=== PATIENT | male | born 1965 | race Caucasian/White ===

== ENCOUNTER → 2019-01-31 | Outpatient (REF) | payer OTHER | LOC: M LAB LCGH 16:27 | PROVIDERS: ATTEND Physician Assistant | DX: D23.5 Other benign neoplasm of skin of trunk (principal) ==

== ENCOUNTER → 2021-03-27 | Outpatient (REF) | payer OTHER | LOC: M LAB REF 12:37 | PROVIDERS: ATTEND Ophthalmology | DX: L82.1 Other seborrheic keratosis (principal) ==

== ENCOUNTER → 2023-07-24 | Outpatient (CLI) | payer OTHER | LOC: M SLEEP 20:00 | PROVIDERS: ATTEND Physician Assistant Medical | DX: G47.33 Obstructive sleep apnea (adult) (pediatric) (principal) ==

== ENCOUNTER → 2023-08-18 | Outpatient (CLI) | payer OTHER | LOC: M SLEEP 20:00 | PROVIDERS: ATTEND Physician Assistant Medical | DX: G47.33 Obstructive sleep apnea (adult) (pediatric) (principal) ==

== ENCOUNTER → 2024-06-14 | Outpatient (REF) | payer BC, OTHER | LOC: M SFHCDERM 17:36 | PROVIDERS: ATTEND Nurse Practitioner Family | DX: L57.0 Actinic keratosis (principal) ==